=== PATIENT | female | born 1960 | race Caucasian/White ===

== ENCOUNTER 2024-05-07 07:09 | Emergency (ER) | payer BC, SELFPAY ==
--- NOTE | ~2024-05-07 | CT_ITS ---
CLINICAL HISTORY: fall, +head strike CT cervical spine without contrast Comparison: None Findings: Normal vertebral body alignment. Multilevel degenerative change with disc height loss and osteophyte formation from C4-C7. No acute fractures or dislocations. Visualized intracranial contents are unremarkable. Soft tissues of the neck are normal. No consolidation or effusion at the lung apices. IMPRESSION: No evidence of acute cervical fracture or malalignment. This document has been electronically signed by: Lola Alvarez MD on 05/07/2024 08:57:06
--- NOTE | ~2024-05-07 | XR_ITS ---
CLINICAL HISTORY: fall 3 view left elbow Comparison: None Findings: No acute fractures or dislocations. No significant arthritic change or erosions. No joint effusion. No radiopaque foreign body. IMPRESSION: 1. No acute findings This document has been electronically signed by: Lola Alvarez MD on 05/07/2024 08:08:17
--- NOTE | ~2024-05-07 | CT_ITS ---
CLINICAL HISTORY: fall, +head strike CT head without contrast Comparison: None Findings: No intra-axial mass, midline shift, hydrocephalus, or acute hemorrhage. No significant atrophy-like change or white matter disease. Left posterior scalp hematoma. The visualized paranasal sinuses and mastoid air cells are normal. The orbits are unremarkable. There is no acute fracture. IMPRESSION: 1. No acute intracranial hemorrhage. No acute fracture. This document has been electronically signed by: Lola Alvarez MD on 05/07/2024 09:01:03
[2024-05-07 07:17] VITALS: BP 145/81; PULSE 60; RESP 18; TEMP 36.8; O2SAT 99; BMI 20.4
--- NOTE | 2024-05-07 07:22 | ED.FALL ---
HPI - Fall General Chief Complaint: Fall Stated Complaint: fell on ice head laceration Time Seen by Provider: 05/07/24 07:21 Source: patient and RN notes reviewed Mode of arrival: ambulatory Limitations: no limitations History of Present Illness ED Provider: Kyra Croft PA-C [facility] Narrative: This is a 63-year-old female who presents emergency department after a slip and fall on ice. Patient states that she struck the back of her head on the pavement. Patient struck the back of her head, and ultimately lacerated her head. Denies LOC. She reports headache, as well as left elbow pain. She is not on anticoagulation. Denies any weakness, numbness or tingling. No neck pain. No other complaints or concerns at this time. MD complaint: fall Onset (ago): minute(s) Fall from: standing Fall witnessed: yes, by family Place fall occurred: home Loss of consciousness: none Prolonged down time: no Symptoms prior to fall: none Context: tripped/slipped Location of injury: head Location of injury - extremities: left: elbow Associated symptoms (after fall): headache Related Data Previous Rx's ?Medication ?Instructions ?Recorded amoxicillin 875 mg-potassium 1 tab PO BID 5 days #10 tabs 05/07/24 clavulanate 125 mg tablet ondansetron 4 mg disintegrating 4 mg PO Q6H PRN nausea and 05/07/24 tablet vomiting #10 tabs Allergies Allergy/AdvReac Type Severity Reaction Status Date / Time No Known Allergies Allergy Verified 05/07/24 07:19 Review of Systems Review of Systems: Yes all other systems are reviewed and are negative Constitutional: Constitutional: Reports as per [facility] Social History Social History Advance Directives: No Advance Directives Information Provided: Yes Physical Exam Vital Signs: Vital Signs: Last Vital Signs Temp 97.8 F 05/07/24 08:42 Pulse 60 05/07/24 08:42 Resp 13 05/07/24 08:42 BP 113/57 L 05/07/24 08:42 Pulse Ox 98 05/07/24 08:42 O2 Del Method Room Air 05/07/24 08:42 BMI result Body Mass Index 20.4 Const: General: cooperative, comfortable and no acute distress Orientation/consciousness: patient oriented x3 Limitations: no limitations HEENT: Other: Left posterior scalp, with 2 cm partial-thickness laceration noted, active bleeding noted. Surrounding hematoma noted. Head: Yes normal to inspection, Yes normocephalic and Yes atraumatic Ears: hearing grossly normal bilaterally General nose exam: Normal external nose present Face and sinus: Yes normal facial exam Mouth: Normal oral and palatal mucosa present, oropharynx normal and moist mucous membranes Throat: Yes posterior oropharynx normal Eyes: General: appearance normal, both eyes and all related structures Eyelids: Yes eyelids normal Conjunctivae: conjunctivae normal Sclerae: sclerae normal Pupils: Equal, round and reactive pupils present EOM: EOMs intact bilaterally Neck: Other: No midline spine tenderness Neck: Yes normal visual inspection, Yes full ROM and Yes no lymphadenopathy Lymphatic: no lymphadenopathy noted Chest: Chest palpation & inspection: normal inspection of the chest Resp: Effort & Inspection: normal respiratory effort and able to speak in complete sentences Auscultation: clear to auscultation bilaterally, no crackles, no rales, no rhonchi and no wheezes Cardio: Rate: regular rate Rhythm: regular rhythm Heart sounds: S1 normal heart sound present and S2 normal heart sound present GI: Inspection: Yes normal to inspection Skin: General skin exam: no rashes or lesions noted Trauma: no lacerations or abrasions Wounds: no wounds Neuro: General: patient oriented x3 and moves all extremities Cranial nerves: Yes Equal, round and reactive pupils present Cognition (Neuro): normal cognition Gait exam (Neuro): Normal gait present Motor exam (neuro): 5/5 motor strength present throughout and Pronator motor function not present Extrem: Other: Left elbow with exquisite tenderness palpation along the medial olecranon. Full ROM, no obvious bony deformity or swelling. No bony step-off. Strong radial pulse. No open wounds or lacerations. General: Yes normal to inspection Right upper extremity: normal to inspection Right lower extremity: normal to inspection Left lower extremity: normal to inspection Course Reevaluation(s) Reevaluation #1: CT head and neck unremarkable for any acute findings. Discussed findings with patient. Her wound was cleansed with saline and Betadine. Wound was closed using 5 nusrat to her posterior scalp. Patient tolerated procedure well without any complications or concerns. Discharged on Augmentin, given tetanus, given strict return precautions. She understands and agrees with plan. Patient stable for discharge. Time: 10:44 Medications Administered Discontinued Medications Generic Name Dose Route Start Last Admin Trade Name Laurita PRN Reason Stop Dose Admin Acetaminophen 975 mg 05/07/24 07:28 05/07/24 07:41 Acetaminophen 325 Mg Tablet PO 05/07/24 07:29 975 mg ONCE ONE Administration Lidocaine HCl 1 appl 05/07/24 09:31 05/07/24 09:34 Lidocaine 4 % Cream Kit TOPICAL 05/07/24 09:32 1 appl ONCE ONE Administration Protocol Ondansetron HCl 4 mg 05/07/24 09:19 05/07/24 09:22 Ondansetron Odt 4 Mg Tab.Rapdis TRANSLINGU 05/07/24 09:20 4 mg ONCE ONE Administration Lidocaine/Epinephrine/Tetracaine 1 ml 05/07/24 08:50 05/07/24 09:34 Lidocaine/Epineph/Tetracaine 3 Ml Gel.Pf.Marshall TOPICAL 05/07/24 08:51 Not Given ONCE ONE Protocol Procedures Laceration Laceration 1: Site: scalp Side (If applicable): left Size (cm): 2 Description: linear Depth: simple, single layer Local Anesthetic: other anesthetic (topical lidocaine) Amount of anesthesia used (mL): 3 Pre-repair: wound explored, irrigated extensively and deep structures intact Skin layer closed with: other (nusrat) Size (cm): other (nusrat) Number of sutures: 5 Medical Decision Making Medical Decision Making [facility] Narrative: This is a 63-year-old female who presents emergency department with concerns for laceration to her posterior head which occurred just prior to arrival. On arrival, blood pressure 145/81, all other vital signs within normal limits. She is speaking full sentences under no acute distress. She is neurologically intact. She is not on blood thinners. She had no loss of consciousness. Denies taking any medications prior to her arrival today. She also reports left elbow pain. Differential diagnoses include ICH, SDH, head contusion, laceration, fracture, contusion. Plan: CT head, neck, left elbow x-ray, Tylenol 1 g Differential Diagnosis Differential Diagnoses: The differential diagnosis associated with the presentation includes See above Admission/Observation Consideration of admission/observation: Escalation of care including admission/observation considered Lab Data [facility] Lab Attestation statement: I reviewed the patient's lab results. Radiology Impression Discussion of test interpretation with radiology: I have reviewed the radiologist's reading. External Record Review External record reviewed: Inpatient record, Office record, Outpatient record, Prior outpatient labs, Prior outpatient radiology, Primary care record and Outside ED record Discharge Plan Discharge Clinical Impression: Head injury, Laceration of head, Contusion of elbow, left Patient Disposition: Still a Patient Instructions: Laceration (ED), Head Injury (ED), Contusion in Adults (ED) Additional Instructions: You were seen in the emergency department after a slip and fall on ice. Your head CT and neck CT do not show any injuries from the fall. You do have degenerative changes seen at you were C4-C7 level. Your x-ray of your left elbow does not show any broken bones. You do have a wound to the back of your head, this was closed using nusrat. You need to have the nusrat removed in 5-7 days. You may wash your head with warm water today. You may use a mild soap tomorrow. Apply ice the back of your head. You may return here to the emergency room or follow-up with your primary care physician. You may gently rinse area with soap and water. Watch for any signs of infection including but not limited to increased redness, swelling, fevers or chills. If any of these occur, please seek emergent care. I am putting you on prophylactic antibiotics to prevent infection, please take as prescribed. You may have intermittent headaches, nausea, and fatigue, this can happen after falling and hitting your head. Physical and mental rest can help over the next several days. You may alternate between ibuprofen and or Tylenol as needed for pain. Zofran is a medication that can help with nausea. If any new or worsening symptoms occur including but not limited to severe headache, severe dizziness, weakness, please seek emergent care. We also updated your tdap immunization today. Please update your records. Prescriptions: New ondansetron 4 mg tablet,disintegrating 4 mg PO Q6H PRN (Reason: nausea and vomiting) Qty: 10 0RF amoxicillin-pot clavulanate 875-125 mg tablet 1 tab PO BID 5 Days Qty: 10 0RF Stand Alone Forms: Work/School Release Print Language: Slovenian
[2024-05-07] MEDS: Acetaminophen 325 MG TABLET 975 MG PO (07:41)
[2024-05-07 08:42] VITALS: BP 113/57; PULSE 60; RESP 13; TEMP 36.6; O2SAT 98
[2024-05-07] MEDS: Ondansetron ODT 4 MG TAB.RAPDIS TRANSLINGU (09:22)
[2024-05-07] MEDS: Lidocaine 4 % Cream KIT 1 APPL TOPICAL (09:34)
[2024-05-07] MEDS: Diphth,Pertus(ACell),Tet Adult 0.5 ML SYRINGE IM (10:45)
[2024-05-07 10:51] VITALS: BP 113/57; PULSE 60; RESP 13; TEMP 36.6; O2SAT 98
== END 2024-05-07 10:52 | disposition still patient (30) ==
PROVIDERS: Emergency Provider Emergency Medicine
DX: S01.01XA Laceration without foreign body of scalp, initial encounter (principal); S50.02XA Contusion of left elbow, initial encounter; R51.9 Headache, unspecified; M54.2 Cervicalgia; M25.522 Pain in left elbow; W00.0XXA Fall on same level due to ice and snow, initial encounter; Y93.89 Activity, other specified; Y92.89 Other specified places as the place of occurrence of the external cause; Y99.8 Other external cause status; Z23 Encounter for immunization
CPT/HCPCS: 12031; 70450; 72125; 73070; 90471; 90715; 99284

== ENCOUNTER → 2024-05-07 07:50 | Outpatient (BNV) | payer BC, SELFPAY | PROVIDERS: Emergency Provider Emergency Medicine; Visit Provider Radiology Diagnostic Radiology | DX: S09.90XA Unspecified injury of head, initial encounter (principal); G89.11 Acute pain due to trauma; M25.522 Pain in left elbow; W00.0XXA Fall on same level due to ice and snow, initial encounter | CPT/HCPCS: 70450; 72125; 73070 ==